=== PATIENT | female | born 1980 | race Caucasian/White ===

== ENCOUNTER 2018-04-14 12:38 | Emergency (ER) | payer OTHER ==
[~2018-04-14] VITALS: Ht 162.6 cm; Wt 89.8 kg
[2018-04-14 12:50] VITALS: BP 149/82
--- NOTE | 2018-04-14 13:03 | PHYS DOC ---
Adult General Chief Complaint Chief Complaint: INSECT BITE HPI HPI 37-year-old female presents with concern for cellulitis. Patient believes that she was bit by some kind of insect twice on her left arm yesterday. One of the areas was about 2 cm in diameter. Today, the area has spread to be 8 cm x 8 cm and erythematous. She is concern for infection. She has had an abscess once in the past on her abdomen and she does not want to get this bad. She denied any drainage. He has had no fever or chills. Review of Systems Review of Systems Constitutional: Denies fever or chills [] Eyes: Denies change in visual acuity, redness, or eye pain [] HENT: Denies nasal congestion or sore throat [] Respiratory: Denies cough or shortness of breath [] Cardiovascular: No additional information not addressed in HPI [] GI: Denies abdominal pain, nausea, vomiting, bloody stools or diarrhea [] : Denies dysuria or hematuria [] Musculoskeletal: Denies back pain or joint pain [] Integument: Cellulitis left upper arm[] Neurologic: Denies headache, focal weakness or sensory changes [] Endocrine: Denies polyuria or polydipsia [] All other systems were reviewed and found to be within normal limits, except as documented in this note. Allergies Allergies Allergies Coded Allergies Type Severity Reaction Last Updated Verified fluoxetine Allergy Unknown 04/14/18 Yes Physical Exam Physical Exam Constitutional: Well developed, well nourished, no acute distress, non-toxic appearance. [] HENT: Normocephalic, atraumatic, bilateral external ears normal, oropharynx moist, no oral exudates, nose normal. [] Eyes: PERRLA, EOMI, conjunctiva normal, no discharge. [] Neck: Normal range of motion, no tenderness, supple, no stridor. [] Cardiovascular:Heart rate regular rhythm, no murmur [] Lungs & Thorax: Bilateral breath sounds clear to auscultation [] Abdomen: Bowel sounds normal, soft, no tenderness, no masses, no pulsatile masses. [] Skin: Erythematous 8 cm x 8 cm area of skin on the left upper arm, no palpable fluctuance, no drainage.[] Back: No tenderness, no CVA tenderness. [] Extremities: No tenderness, no cyanosis, no clubbing, ROM intact, no edema. [] Neurologic: Alert and oriented X 3, normal motor function, normal sensory function, no focal deficits noted. [] Psychologic: Affect normal, judgement normal, mood normal. [] EKG EKG [] Radiology/Procedures Radiology/Procedures [] Course & Med Decision Making Course & Med Decision Making Pertinent Labs and Imaging studies reviewed. (See chart for details) Patient has cellulitis. I do not feel a fluctuant area requiring I&D. I will treat her with doxycycline for 7 days. [] Dragon Disclaimer Dragon Disclaimer This electronic medical record was generated, in whole or in part, using a voice recognition dictation system. Departure Departure: Referrals: HAYDEE CLEMENTS (PCP) ZAC JOHNSTON DO Apr 14, 2018 13:03
[2018-04-14] MEDS ORDERED: DOXY100C2 PO (13:08)
[2018-04-14] MEDS ORDERED: CEPH-264 PO (13:08)
== END 2018-04-14 13:12 | disposition home or self-care (01) ==
LOC: ER 12:38
DX: L03.114 Cellulitis of left upper limb (principal); Z88.8 Allergy status to other drugs, medicaments and biological substances
CPT/HCPCS: 99283

== ENCOUNTER → 2019-03-20 | Outpatient (CLI) | payer OTHER ==
[~2019-03-20] MED LIST: CEPH-264 PO; DOXY100C2 PO
[2019-03-20 10:37] LABS: BASO # 0.1 x10^3/uL (0.0-0.2); BASO % 1 % (0-3); EOS # 0.3 x10^3/uL (0.0-0.7); EOS % 5 % (0-3); HEMATOCRIT 33.8 % (36.0-47.0); HEMOGLOBIN 10.6 g/dL (12.0-15.5); LYMPH # 2.4 x10^3/uL (1.0-4.8); LYMPH % 38 % (24-48); MEAN CORPUSCULAR HEMOGLOBIN 23 pg (25-35); MEAN CORPUSCULAR HGB CONC 31 g/dL (31-37); MEAN CORPUSCULAR VOLUME 74 fL (79-100); MONO # 0.4 x10^3/uL (0.0-1.1); MONO % 7 % (0-9); NEUT # 3.1 x10^3uL (1.8-7.7); NEUT % 50 % (31-73); PLATELET COUNT 346 x10^3/uL (140-400); RED BLOOD COUNT 4.57 x10^6/uL (3.50-5.40); RED CELL DISTRIBUTION WIDTH 15.6 % (11.5-14.5); WHITE BLOOD COUNT 6.3 x10^3/uL (4.0-11.0)
[2019-03-20 10:51] LABS: ALBUMIN 3.9 g/dL (3.4-5.0); ALBUMIN/GLOBULIN RATIO 0.9 (1.0-1.7); CALCIUM 9.1 mg/dL (8.5-10.1); CREATININE 0.7 mg/dL (0.6-1.0); GFR 92.7; POTASSIUM 3.9 mmol/L (3.5-5.1); TOTAL BILIRUBIN 0.3 mg/dL (0.2-1.0); TOTAL PROTEIN 8.1 g/dL (6.4-8.2)
[2019-03-20 15:17] LABS: THYROID STIM HORMONE (TSH) 0.586 uIU/mL (0.358-3.740)
[2019-03-22 13:11] LABS: H PYLORI IGA <9.0 units (0.0-8.9); H PYLORI IGM <9.0 units (0.0-8.9)
== END | disposition home or self-care (01) ==
LOC: LAB 10:07
PROVIDERS: ATTEND Family Medicine
DX: Z68.35 Body mass index [BMI] 35.0-35.9, adult (principal)
CPT/HCPCS: 36415; 80053; 80061; 84443; 85025; 86677

== ENCOUNTER 2019-11-08 08:33 | Emergency (ER) | payer OTHER ==
[~2019-11-08] VITALS: Ht 162.6 cm; Wt 93.1 kg
[2019-11-08 08:39] VITALS: BP 130/74
[2019-11-08] MEDS ORDERED: OLOP5DRO13 EACHEYE (08:55)
--- NOTE | 2019-11-08 08:56 | PHYS DOC ---
Past History Past Medical History: No Pertinent History Past Surgical History: Other Alcohol Use: Occasionally Drug Use: None General Adult EDM: Chief Complaint: EYE PROBLEMS HPI: HPI: 39-year-old female presents with bilateral eye irritation. Patient tried a new eyeliner yesterday around 5 PM. By 530 she realized that it was irritating her eyes and she thought she might have an allergic reaction. She washed it off. She then used some read-out eyedrops and lubrication drops to make the itching feel better. She woke up this morning with her eyes matted closed. She continues to have some thin discharge and has a small bulla on the left lateral conjunctiva. She is very concerned about this that she is never had a before. Her eyes are still very itchy. Review of Systems: Review of Systems: Constitutional: Denies fever or chills Eyes: Bilateral eye irritation worse on left HENT: Denies nasal congestion or sore throat Respiratory: Denies cough or shortness of breath Cardiovascular: Denies chest pain or edema GI: Denies abdominal pain, nausea, vomiting, bloody stools or diarrhea : Denies dysuria Musculoskeletal: Denies back pain or joint pain Integument: Denies rash Neurologic: Denies headache, focal weakness or sensory changes Endocrine: Denies polyuria or polydipsia Lymphatic: Denies swollen glands Psychiatric: Denies depression or anxiety Heart Score: Risk Factors: Risk Factors: DM, Current or recent (<one month) smoker, HTN, HLP, family history of CAD, obesity. Risk Scores: Score 0 - 3: 2.5% MACE over next 6 weeks - Discharge Home Score 4 - 6: 20.3% MACE over next 6 weeks - Admit for Clinical Observation Score 7 - 10: 72.7% MACE over next 6 weeks - Early Invasive Strategies Allergies: Allergies: Allergies Coded Allergies Type Severity Reaction Last Updated Verified fluoxetine Allergy Unknown 04/14/18 Yes Physical Exam: PE: Constitutional: Well developed, well nourished, no acute distress, non-toxic appearance. [] HENT: Normocephalic, atraumatic, bilateral external ears normal, oropharynx moist, no oral exudates, nose normal. [] Eyes: PERRLA, EOMI, conjunctiva erythematous bilaterally, left eye with small lateral fluid collection consistent with allergic conjunctivitis. [] Neck: Normal range of motion, no tenderness, supple, no stridor. [] Cardiovascular:Heart rate regular rhythm, no murmur [] Lungs & Thorax: Bilateral breath sounds clear to auscultation [] Abdomen: Bowel sounds normal, soft, no tenderness, no masses, no pulsatile masses. [] Skin: Warm, dry, no erythema, no rash. [] Back: No tenderness, no CVA tenderness. [] Extremities: No tenderness, no cyanosis, no clubbing, ROM intact, no edema. [] Neurologic: Alert and oriented X 3, normal motor function, normal sensory function, no focal deficits noted. [] Psychologic: Affect normal, judgement normal, mood normal. [] EKG: EKG: [] Radiology/Procedures: Radiology/Procedures: [] Course & Med Decision Making: Course & Med Decision Making Pertinent Labs and Imaging studies reviewed. (See chart for details) The patient appears to have allergic conjunctivitis. I will treat her with Patanol drops. She is stable for discharge at this time. [] Dragon Disclaimer: Dragon Disclaimer: This electronic medical record was generated, in whole or in part, using a voice recognition dictation system. Departure Departure: Impression: Primary Impression: Allergic conjunctivitis, bilateral Disposition: 01 HOME/RESIDENCE PRIOR TO ADM Condition: STABLE Referrals: SUSANA SIMMONS MD (PCP) Patient Instructions: Allergic Conjunctivitis, [id number] Scripts Olopatadine HCl (Olopatadine HCl) 5 Ml Drops 1 DROP EACHEYE BID for allergic conjunctivitis for 4 Days, #5 ML 0 Refills Prov: ZAC JOHNSTON DO 11/08/19 Justification of Admission: Justification of Admission: Justification of Admission Dx: N/A ZAC JOHNSTON DO Nov 08, 2019 08:56
== END 2019-11-08 08:59 | disposition home or self-care (01) ==
LOC: ER 08:33
DX: H10.13 Acute atopic conjunctivitis, bilateral (principal); Z88.8 Allergy status to other drugs, medicaments and biological substances
CPT/HCPCS: 99283

== ENCOUNTER → 2021-03-14 | Outpatient (CLI) | payer OTHER ==
[~2021-03-14] MED LIST changes: -DOXY100C2 PO; +DOXY100C3 PO; +OLOP5DRO13 EACHEYE
--- NOTE | 2021-03-14 17:37 | RAD ---
Bilateral digital screening mammogram to include digital breast tomosynthesis (3-D mammography) 03/14 CLINICAL HISTORY: Screening study. Digital MLO and CC mammograms of both breasts were obtained. Additionally digital breast tomosynthesi s images (3-D mammography) of both breasts in the CC and MLO projections were obtained. This is the patient's baseline mammogram. The breast parenchyma is heterogeneously dense which could obscure a lesion on mammography (breast de nsity C). No spiculated mass is seen. No malignant appearing calcification or area of architectural d istortion is noted. Digital breast tomosynthesis images demonstrate no spiculated mass. No malignant appearing calcificat ion is seen. Impression: BI-RADS Category 1: Negative. There is no mammographic evidence of malignancy. Routine y early screening mammography is recommended for follow-up. This examination was reviewed with the aid of computer-aided detection. A mammogram does not have 100% sensitivity and therefore a negative imaging study should not delay fu rther work up of a suspicious abnormality. Patient information is entered into the reminder system with a target due date for the next screening mammogram of 03/14/2022. "Our facility is accredited by the [employer] Mammography [employer]." Electronically signed by: Pete Burks MD (03/14/2021 5:35 PM) [facility]
== END ==
LOC: MAMMO 11:08
PROVIDERS: ATTEND Family Medicine
DX: Z12.31 Encounter for screening mammogram for malignant neoplasm of breast (principal); N64.89 Other specified disorders of breast
CPT/HCPCS: 77063; 77067